=== PATIENT | female | born 1955 | race Caucasian/White ===

== ENCOUNTER 2018-11-14 06:32 | Inpatient (IN) ==
[2018-11-10 14:40] LABS: Basophils % 0.7 % (0.0-0.8); Eosinophils # 0.1 10*3/uL (0.0-0.87); Eosinophils % 1.6 % (0.00-10.9); Hematocrit 41.6 VOL% (35.7-47.0); Hemoglobin 13.3 GM/DL (12.0-16.0); Immature Granulocytes % 0.7 %; Immature Granulocytes Absolute 0.04 #; Lymphocytes # 1.9 10*3/uL (1.4-4.0); Lymphocytes % 33.5 % (21.3-54.2); Mean Corpuscular Hemoglobin 27 PG (27-34); Mean Corpuscular Volume 84.6 FL (87-102); Mean Platelet Volume 10.5 FL (9.6-12.0); Monocytes # 0.3 10*3/uL (0.11-0.8); Monocytes % 5.7 % (1.7-12.7); Neutrophils # 3.3 10*3/uL (1.4-7.4); Neutrophils % 57.8 % (38.7-73.9); Platelet Count 170 T/CUMM (130-400); Red Blood Count 4.92 MC/CUMM (3.8-5.5); White Blood Count 5.6 T/CUMM (4-12)
[2018-11-10 14:58] LABS: Calcium 9.1 MG/DL (8.5-10.1); Osmolality,Calculated 283.3 MOS/KG (273-304); Potassium 3.9 MMOL/L (3.5-5.1)
[~2018-11-14 06:32] MED LIST: CLINDAMYCIN INJ 50 ML IV ONE; CLINDAMYCIN INJ 900 MG in PREMIX 1 EACH IV ONE
[2018-11-14] MEDS ORDERED: ONDANSETRON 4 MG/2 ML VIAL IV ONE (09:48)
[2018-11-14] MEDS ORDERED: SCOPOLAMINE 1.5 MG PATCH TRANSDERM ONE ×2 (09:48→10:03)
[2018-11-14] MEDS ORDERED: LORazepam 1 MG TABLET PO ONE (09:48)
[2018-11-14] MEDS ORDERED: ONDANSETRON 4 MG/2 ML VIAL ONE ×2 (10:03→16:43)
[2018-11-14] MEDS ORDERED: LORazepam 1 MG TABLET ONE (10:03)
[2018-11-14] MEDS: LACTATED RINGERS 1,000 ML IV SCH ×2 (10:20→18:14)
[2018-11-14] MEDS ORDERED: ONDANSETRON 4 MG/2 ML VIAL IV PRN ×2 (11:49→16:43)
[2018-11-14] MEDS ORDERED: HYDROmorphone 2 MG/1 ML VIAL IV PRN ×2 (11:49→16:43)
[2018-11-14] MEDS ORDERED: ALBUTEROL/IPRATROPIUM 3 ML NEB RESP TX PRN (11:49)
[2018-11-14] MEDS ORDERED: KETOROLAC 10 MG TABLET PO PRN (11:49)
[2018-11-14] MEDS ORDERED: BISACODYL 5 MG TABLET PO PRN (11:49)
[2018-11-14] MEDS ORDERED: ACETAMINOPHEN 325 MG TABLET PO PRN (11:49)
[2018-11-14] MEDS ORDERED: ROPIVACAINE 0.5% 30 ML VIAL ONE (12:21)
[2018-11-14] MEDS ORDERED: MIDAZOLAM 2 MG/2 ML VIAL ONE (12:21)
[2018-11-14] MEDS ORDERED: ISOSULFAN BLUE 5 ML VIAL SUBCUT ONE (13:11)
[2018-11-14] MEDS ORDERED: LIDOCAINE 1%/EPI INJ 20 ML VIAL ONE (13:11)
[2018-11-14] MEDS ORDERED: MIDAZOLAM 2 MG/2 ML VIAL IV ONE (13:38)
[2018-11-14] MEDS ORDERED: PROPOFOL 200 MG/20 ML VIAL IV ONE (16:42)
[2018-11-14] MEDS ORDERED: SEVOFLURANE 1 UNIT/15 MINUTE INH ONE (16:42)
[2018-11-14] MEDS ORDERED: ACETAMINOPHEN 1,000 MG/100 ML VIAL IV ONE (16:43)
[2018-11-14] MEDS ORDERED: GLYCOPYRROLATE 0.4 MG/2 ML VIAL ONE ×2 (16:43)
[2018-11-14] MEDS ORDERED: DEXAMETHASONE 4 MG/1 ML VIAL ONE (16:43)
[2018-11-14] MEDS ORDERED: fentaNYL 100 MCG/2 ML VIAL ONE (16:43)
[2018-11-14] MEDS ORDERED: ROCURONIUM 100 MG/10 ML VIAL IV ONE (16:44)
[2018-11-14] MEDS ORDERED: PROMETHAZINE 25 MG/1 ML VIAL ONE (16:44)
[2018-11-14] MEDS: HYDROmorphone 2 MG/1 ML VIAL IV PRN ×2 (18:13→22:53)
[2018-11-14] MEDS: GEMFIBROZIL 600 MG TABLET PO SCH (23:03)
[2018-11-15] MEDS: LACTATED RINGERS 1,000 ML IV SCH ×2 (00:31→06:01)
[2018-11-15] MEDS: HYDROmorphone 2 MG/1 ML VIAL IV PRN ×3 (01:26→23:51)
[2018-11-15 05:11] LABS: Basophils % 0.2 % (0.0-0.8); Hemoglobin 10.5 GM/DL (12.0-16.0); Immature Granulocytes % 0.7 %; Immature Granulocytes Absolute 0.11 #; Lymphocytes # 1.3 10*3/uL (1.4-4.0); Lymphocytes % 8.6 % (21.3-54.2); Mean Corpuscular HGB Conc 31.8 GM/DL (32-36); Mean Corpuscular Hemoglobin 27 PG (27-34); Mean Corpuscular Volume 85.7 FL (87-102); Mean Platelet Volume 10.9 FL (9.6-12.0); Monocytes # 0.7 10*3/uL (0.11-0.8); Monocytes % 4.8 % (1.7-12.7); Neutrophils % 85.7 % (38.7-73.9); Platelet Count 238 T/CUMM (130-400); Red Blood Count 3.85 MC/CUMM (3.8-5.5); Red Cell Distribution Width 13.1 % (9.3-17.3); White Blood Count 15.1 T/CUMM (4-12)
[2018-11-15 05:19] LABS: Osmolality,Calculated 280.7 MOS/KG (273-304); Potassium 4.5 MMOL/L (3.5-5.1)
[2018-11-15] MEDS: GEMFIBROZIL 600 MG TABLET PO SCH ×2 (08:30→17:49)
[2018-11-15] MEDS: LISINOPRIL/HCTZ 20-25 MG TABLET PO SCH (09:13)
[2018-11-15] MEDS: CHOLECALCIFEROL 1,000 UNIT TABLET PO SCH (09:13)
[2018-11-15] MEDS: PANTOPRAZOLE 40 MG TABLET PO SCH (09:13)
[2018-11-15] MEDS: ASPIRIN EC 81 MG TABLET PO SCH (09:13)
[2018-11-15] MEDS: SIMVASTATIN 10 MG TABLET PO SCH (09:14)
[2018-11-15] MEDS: ALLOPURINOL 100 MG TABLET PO SCH (09:14)
[2018-11-15 11:27] LABS: Hemoglobin 9.2 GM/DL (12.0-16.0)
[2018-11-15] MEDS ORDERED: SODIUM CHLORIDE 0.9% 1,000 ML IV PRN (16:24)
[2018-11-15] MEDS ORDERED: CLINDAMYCIN INJ 900 MG in PREMIX 1 EACH IV ONE (16:42)
[2018-11-15 17:20] LABS: Hematocrit 26.8 VOL% (35.7-47.0); Hemoglobin 8.6 GM/DL (12.0-16.0)
[2018-11-15] MEDS ORDERED: CLINDAMYCIN INJ 50 ML IV ONE (17:41)
[2018-11-15] MEDS ORDERED: PHENYLEPHRINE 1 MG/10 ML SYRINGE IV ONE (18:56)
[2018-11-15] MEDS ORDERED: ONDANSETRON 4 MG/2 ML VIAL ONE (18:56)
[2018-11-15] MEDS ORDERED: MIDAZOLAM 2 MG/2 ML VIAL ONE (18:56)
[2018-11-15] MEDS ORDERED: DEXAMETHASONE 4 MG/1 ML VIAL ONE (18:56)
[2018-11-15] MEDS ORDERED: fentaNYL 100 MCG/2 ML VIAL ONE (18:56)
[2018-11-15] MEDS ORDERED: SEVOFLURANE 1 UNIT/15 MINUTE INH ONE (18:56)
[2018-11-15] MEDS ORDERED: ePHEDrine 50 MG/ML AMP ONE (18:56)
[2018-11-15] MEDS ORDERED: PROPOFOL 200 MG/20 ML VIAL IV ONE (18:56)
[2018-11-15] MEDS ORDERED: LACTATED RINGERS 1,000 ML IV ONE (18:57)
[2018-11-15] MEDS ORDERED: SUCCINYLCHOLINE 200 MG/10 ML VIAL ONE (18:57)
[2018-11-15 20:08] LABS: Calcium 8.2 MG/DL (8.5-10.1); Osmolality,Calculated 271.2 MOS/KG (273-304); Potassium 3.6 MMOL/L (3.5-5.1)
[2018-11-15] MEDS ORDERED: diphenhydrAMINE CAP 25 MG CAPSULE PO PRN (20:08)
[2018-11-15 20:23] LABS: Basophils % 0.1 % (0.0-0.8); Eosinophils % 0.3 % (0.00-10.9); Hematocrit 32.6 VOL% (35.7-47.0); Hemoglobin 10.2 GM/DL (12.0-16.0); Immature Granulocytes % 0.9 %; Immature Granulocytes Absolute 0.06 #; Lymphocytes # 0.9 10*3/uL (1.4-4.0); Lymphocytes % 13.5 % (21.3-54.2); Mean Corpuscular HGB Conc 31.3 GM/DL (32-36); Mean Corpuscular Hemoglobin 27 PG (27-34); Mean Corpuscular Volume 85.8 FL (87-102); Mean Platelet Volume 10.1 FL (9.6-12.0); Monocytes # 0.2 10*3/uL (0.11-0.8); Monocytes % 2.9 % (1.7-12.7); Neutrophils # 5.6 10*3/uL (1.4-7.4); Neutrophils % 82.3 % (38.7-73.9); Platelet Count 112 T/CUMM (130-400); Red Cell Distribution Width 13.3 % (9.3-17.3); White Blood Count 6.8 T/CUMM (4-12)
[2018-11-16 05:07] LABS: Basophils % 0.1 % (0.0-0.8); Hematocrit 30.1 VOL% (35.7-47.0); Hemoglobin 9.7 GM/DL (12.0-16.0); Immature Granulocytes % 1.3 %; Lymphocytes % 13.3 % (21.3-54.2); Mean Corpuscular HGB Conc 32.2 GM/DL (32-36); Mean Corpuscular Hemoglobin 27 PG (27-34); Mean Corpuscular Volume 84.3 FL (87-102); Mean Platelet Volume 10.7 FL (9.6-12.0); Monocytes % 5.9 % (1.7-12.7); Neutrophils # 5.7 10*3/uL (1.4-7.4); Neutrophils % 79.4 % (38.7-73.9); Platelet Count 146 T/CUMM (130-400); Red Blood Count 3.57 MC/CUMM (3.8-5.5); Red Cell Distribution Width 13.2 % (9.3-17.3); White Blood Count 7.2 T/CUMM (4-12)
[2018-11-16 05:08] LABS: Immature Granulocytes Absolute 0.09 #; Monocytes # 0.4 10*3/uL (0.11-0.8)
[2018-11-16 05:29] LABS: Osmolality,Calculated 278.7 MOS/KG (273-304); Potassium 4.3 MMOL/L (3.5-5.1)
[2018-11-16] MEDS: LACTATED RINGERS 1,000 ML IV SCH (06:28)
[2018-11-16] MEDS: ALLOPURINOL 100 MG TABLET PO SCH (08:36)
[2018-11-16] MEDS: CHOLECALCIFEROL 1,000 UNIT TABLET PO SCH (08:36)
[2018-11-16] MEDS: SIMVASTATIN 10 MG TABLET PO SCH (08:36)
[2018-11-16] MEDS: GEMFIBROZIL 600 MG TABLET PO SCH (08:37)
[2018-11-16] MEDS: ASPIRIN EC 81 MG TABLET PO SCH (08:37)
[2018-11-16] MEDS: PANTOPRAZOLE 40 MG TABLET PO SCH (08:37)
[2018-11-16] MEDS: LISINOPRIL/HCTZ 20-25 MG TABLET PO SCH (10:01)
[2018-11-16 12:00] VITALS: BP 120/69
[2018-11-16 14:25] LABS: Hematocrit 31.5 VOL% (35.7-47.0); Hemoglobin 10.1 GM/DL (12.0-16.0)
== END 2018-11-16 16:28 | disposition home health service (06) | DRG 580 ==
LOC: N.OR 06:32 → N.SDSINP 06:33 → N.3E 11:49
PROVIDERS: ADMIT Surgery; ATTEND Surgery